=== PATIENT | female | born 1945 | race Two or more races ===

== ENCOUNTER 2024-06-30 05:55 | Day surgery (SDC) | payer OTHER ==
[2024-06-27 10:47] VITALS: BP 118/68
[~2024-06-30] VITALS: Ht 149.9 cm; Wt 55.3 kg
[~2024-06-30 05:55] MED LIST: DILTIAZEM ER120 M2; EZALLOR SPRINKL10 MG PO; FOSAMAX70 MG PO; MIRAPEX ER1.5 MG PO; NEURONTIN300 MG PO; SYNTHROID75 MCG PO
[2024-06-30] MEDS ORDERED: METRONIDAZOLE/SODIUM CHLORIDE 500 MG/100 ML PIGGYBACK IV ONE (06:58)
[2024-06-30] MEDS ORDERED: CEFTRIAXONE SODIUM 2,000 MG VIAL ONE (06:58)
[2024-06-30] MEDS ORDERED: HEMOSTATIC MATRIX 1 KIT KIT TOP ONE (07:13)
[2024-06-30] MEDS ORDERED: BUPIVACAINE HCL/MPF 0.5% 30ML VIAL ONE (07:13)
[2024-06-30] MEDS ORDERED: DIBUCAINE 30 GM TUBE ONE (07:13)
[2024-06-30] MEDS ORDERED: POVIDONE-IODINE 118 ML BOTT TOP ONE (07:13)
[2024-06-30] MEDS ORDERED: BUPIVACAINE LIPOSOME/PF 266 MG/20 ML VIAL IJ ONE (07:14)
[2024-06-30] MEDS ORDERED: TAMSULOSIN HCL 0.4 MG CAP PO ONE (08:00)
[2024-06-30] MEDS ORDERED: OXYCODONE HCL5 MG PO (08:03)
== END 2024-06-30 12:35 | disposition home or self-care (01) ==
LOC: CIR.AMB 05:55
PROVIDERS: ATTEND Surgery
DX: D12.9 Benign neoplasm of anus and anal canal (principal); K62.1 Rectal polyp; K62.0 Anal polyp; K64.2 Third degree hemorrhoids; K62.89 Other specified diseases of anus and rectum